=== PATIENT | male | born 1960 | race Caucasian/White ===

== ENCOUNTER → 2020-08-18 14:22 | Outpatient (BNVA) | payer OTHER, SELFPAY | PROVIDERS: PCP Internal Medicine; Visit Provider Surgery | DX: K42.9 Umbilical hernia without obstruction or gangrene (principal) | CPT/HCPCS: 99212 ==

== ENCOUNTER → 2020-09-23 10:49 | Day surgery (SDC) | payer OTHER, SELFPAY ==
[2020-09-03 10:48] VITALS: BMI 31.3
--- NOTE | 2020-09-08 11:05 | P.CONAN_ITS ---
Documented by User: Cherylher Avendanoney 09/21/20 10:31 HPI - Anesthesia Eval Consult details Narrative: 60yo M for Open Umbilical Hernia Repair with Mesh 02/2020 - CP and +stress echo, sent to cardiology. Beta saúl and Repeat Nuc Stress 08/2020 was negative for ischemia Childhood pcn allergy - confirm rxn [facility] Active Problems Active Problems: All Active Problems (Updated 09/03/20 @ 10:35 by Rosa Isela Woodard) Preoperative examination (Acute) Shortness of breath (Acute) Umbilical hernia (Acute) Past Medical History Medical History (Updated 09/23/20 @ 13:24 by Dianna Mckeon) GERD (gastroesophageal reflux disease) History of kidney stones HTN (hypertension) Knee pain, left Phlegm in throat Umbilical hernia Family History Family History Mother Heart murmur Father No problems noted. Brother No problems noted. Brother No problems noted. Brother No problems noted. Brother No problems noted. Brother No problems noted. Brother No problems noted. Brother No problems noted. Brother No problems noted. Surgical History Surgical History H/O bilateral inguinal hernia repair History of appendectomy History of lithotripsy Hx of adenoidectomy Social History Social History Alcohol intake: current Alcohol intake frequency: 0-2 drinks per day Alcohol type: wine Smoking Status: Former smoker Tobacco Type: Cigarette Smoking Quit Date: 2004 Use of substances other than those prescribed or required for medical reasons: No Are you DNR?: No Advance Directives: No (unknown) Advance Directives Information Provided: No Advance Directives on File: No (unknown) Meds Allergies Allergy/AdvReac Type Severity Reaction Status Date / Time Penicillins Allergy Unknown reaction Verified 09/03/20 10:51 unknown-childhood allergy-? anaphylaxis Home Medications Medication Instructions Recorded Confirmed Last Taken Type amlodipine 10 mg tablet 10 mg PO DAILY 08/18/20 09/03/20 Unknown History ascorbate calcium (vitamin C) 500 500 mg PO DAILY 08/18/20 09/03/20 Unknown History mg tablet aspirin 81 mg tablet,delayed 81 mg PO DAILY 08/18/20 09/03/20 Unknown History release carvedilol phosphate 20 mg 20 mg PO DAILY 08/18/20 09/03/20 Unknown History capsule,[id number] multiphase ibuprofen 800 mg tablet 800 mg PO TID 08/18/20 09/03/20 Unknown History ketoconazole 2 % topical cream 1 appl TOPICAL BID 08/18/20 09/03/20 Unknown History lisinopril 20 2 tab PO DAILY 08/18/20 09/03/20 Unknown History mg-hydrochlorothiazide 12.5 mg tablet multivitamin 1 tab PO DAILY 08/18/20 09/03/20 Unknown History omeprazole 20 mg capsule,delayed 20 mg PO DAILY 08/18/20 09/03/20 Unknown History release triamcinolone acetonide 0.1 % 1 appl TOPICAL BID 08/18/20 09/03/20 Unknown History topical cream Exam Exam Date and Time: September 08, 2020 1105 Height,Weight and Vital Signs: Height 5 ft 5 in Weight 85.457 kg Narrative Narrative: EKG 02/2020 NSR @ 91 08/2020 Nuc Stress Normal exercise nuc perfusion stress test No perfusion defect to suggest ischemia or infarct at target heart rate Nml LV size and systolic function with LVEF 73% Assessment and Plan Assessment Anesthesia Assessment: Chart Reviewed Documented by User: Dianna Mckeon 09/23/20 13:46 [facility] Past Medical History Medical History (Updated 09/23/20 @ 13:24 by Dianna Mckeon) GERD (gastroesophageal reflux disease) History of kidney stones HTN (hypertension) Knee pain, left Phlegm in throat Umbilical hernia Family History Family History Mother Heart murmur Father No problems noted. Brother No problems noted. Brother No problems noted. Brother No problems noted. Brother No problems noted. Brother No problems noted. Brother No problems noted. Brother No problems noted. Brother No problems noted. Family history of problems with anesthesia: No Surgical History Surgical History H/O bilateral inguinal hernia repair History of appendectomy History of lithotripsy Hx of adenoidectomy History of Problems with Anesthesia: No Social History Social History Alcohol intake: current Alcohol intake frequency: 0-2 drinks per day Alcohol type: wine Smoking Status: Former smoker Tobacco Type: Cigarette Smoking Quit Date: 2004 Use of substances other than those prescribed or required for medical reasons: No Are you DNR?: No Advance Directives: No (unknown) Advance Directives Information Provided: No Advance Directives on File: No (unknown) Meds Allergies Allergy/AdvReac Type Severity Reaction Status Date / Time Penicillins Allergy Unknown reaction Verified 09/03/20 10:51 unknown-childhood allergy-? anaphylaxis Home Medications Medication Instructions Recorded Confirmed Last Taken Type amlodipine 10 mg tablet 10 mg PO DAILY 08/18/20 09/03/20 Unknown History ascorbate calcium (vitamin C) 500 500 mg PO DAILY 08/18/20 09/03/20 Unknown History mg tablet aspirin 81 mg tablet,delayed 81 mg PO DAILY 08/18/20 09/03/20 Unknown History release carvedilol phosphate 20 mg 20 mg PO DAILY 08/18/20 09/03/20 Unknown History capsule,[id number] multiphase ibuprofen 800 mg tablet 800 mg PO TID 08/18/20 09/03/20 Unknown History ketoconazole 2 % topical cream 1 appl TOPICAL BID 08/18/20 09/03/20 Unknown History lisinopril 20 2 tab PO DAILY 08/18/20 09/03/20 Unknown History mg-hydrochlorothiazide 12.5 mg tablet multivitamin 1 tab PO DAILY 08/18/20 09/03/20 Unknown History omeprazole 20 mg capsule,delayed 20 mg PO DAILY 08/18/20 09/03/20 Unknown History release triamcinolone acetonide 0.1 % 1 appl TOPICAL BID 08/18/20 09/03/20 Unknown History topical cream Exam Height,Weight and Vital Signs: Vital Signs Temp Pulse Resp BP Pulse Ox 09/23/20 11:11 97.5 F 75 16 150/73 H 96 Pertinent Lab Results Pertinent Lab Results: Lab Results 09/23/20 Range/Units 10:59 COVID-19 ([facility]) Negative (Negative) COVID-19 Clin Com See Note Narrative Narrative: Seems a little SOB after walking from bathroom but no different from usual. Sats 95% RA ? Penicillin allergy. Cefazolin OK per Dr Krause Airway Mallampati Class: II TM Dist: >3cm Neck ROM: Full Heart: RRR Lungs: CTAB Assessment and Plan Assessment Anesthesia Assessment: Anesthesia Plan Discussed and Chart Reviewed Final Anesthetic Review NPO: Yes ASA Class: III Final Preanesthetic Review: No Changes in Pt Med Stat, Meds/Allgs Chart Reviewed, Consent Obtained/Reviewed and Anes Risks/Benef Reviewed Patient Risk: Intermediate Procedure Risk: Low Assessment/Block/Sedation in SS: Assess/Block/Sedation-SS Anesthetic Plan Anesthetic Plan: GA Disposition: Standard PACU
[2020-09-18 15:42] VITALS: BMI 30.2
--- NOTE | 2020-09-22 16:52 | MHC.SHP ---
Pre-Procedural Eval Section B Chief Complaint: umbilical hernia Allergies: Allergies Allergy/AdvReac Type Severity Reaction Status Date / Time Penicillins Allergy Unknown reaction Verified 09/03/20 10:51 unknown-childhood allergy-? anaphylaxis Plan I have reviewed the history and physical and performed a pertinent physical examination on my patient. No changes have occurred unless specified.
[2020-09-23] VITALS (7 sets, daily range): BP systolic 122–150; BP diastolic 62–75; PULSE 68–75; RESP 16; TEMP 36.4–36.5; O2SAT 95–99
[2020-09-23 11:32] LABS: COVID-19 Test Negative (Negative); IDNOW Serial# 9DD0AD1C
--- NOTE | 2020-09-23 14:45 | P.BOP_ITS ---
Brief Operative Note Date of Service: 09/23/20 Pre-op diagnosis: Umbilical hernia Post-op diagnosis: same Procedure: Open repair umbilical hernia with mesh Implants: 4.[address] strap mesh Surgeon: Renate Krause MD Anesthesia: GLMA Was an Rehabilitation Services Aide used for this Procedure?: No Estimated blood loss (mL): 3 Pathology: none sent Condition: stable Disposition: PACU
--- NOTE | 2020-09-23 14:50 | W.PM.OPN ---
Operative Note Operative Note Date of Service: 09/23/20 Narrative: Patient was brought into the operating room, placed on operating room table in the supine position. Normal DVT prophylaxis was instituted and the patient received the appropriate preoperative antibiotic which was 2 g of IV Kefzol. General anesthesia was induced. The abdomen was prepped and draped in normal sterile fashion using ChloraPrep. A safety time-out was performed. A mixture of local anesthetic which included 1% lidocaine with epinephrine and 0.25% Marcaine plain was used to anesthetize the planned incision site in the periumbilical region. Next a 11. Scalpel was used to make a 2.5 cm infraumbilical semicircular transverse surgical incision through which the subcutaneous tissues were dissected down to level of fascia using cautery. The umbilical stalk was dissected off the underlying fascia. The hernia was reduced. The contents of the hernia were preperitoneal fat. The size of the hernia defect was 1 to 1.5 cm in size. Next a suitable size mesh was chosen for the hernia repair. The hernia mesh was 4 cm in size and was a Ventralight ST strap hernia mesh. The hernia mesh was then placed into the preperitoneal position and sutured in place using a total of 4 sutures of 0 Prolene. The mesh was placed in an underlay fashion with U-stitch sutures with the knots of the suture being placed on top of the fascia. The sutures were placed at the 3, 6, 9, 12 o'clock positioning. Once the mesh was in good position and well apposed to the undersurface of the fascia the sutures were tied down to the fascia. We cut the strap off the hernia mesh. There was no residual hernia defect. We then reapproximated the fascia overlying the mesh using a running 0 Prolene suture so that the mesh was completely covered. We tacked down the umbilicus to the fascia using a 3-0 Vicryl suture. We then instilled local anesthetic into the fascia closure site. We then reapproximated deep dermal tissues at the incision site and closed overlying skin with a 4-0 Monocryl subcuticular stitch. We cleaned and dried the skin and applied Dermabond skin glue to the incision. We placed a 2 x 2 dressing inside the umbilicus and a Tegaderm to prevent seroma formation postoperatively. All counts were correct at the end the case there were no complications. The patient was awake and in stable condition prior to transfer to extubation and transferred to the recovery room.
[2020-09-23] MEDS: oxyCODONE HCl Immed Release 5 MG TABLET PO (15:18)
== END | disposition home or self-care (01) ==
PROVIDERS: PCP Internal Medicine; Visit Provider Surgery
PROC: (CPT 49585; principal; 2020-09-23 13:00)
DX: K42.9 Umbilical hernia without obstruction or gangrene (principal); K21.9 Gastro-esophageal reflux disease without esophagitis; I10 Essential (primary) hypertension; Z79.82 Long term (current) use of aspirin; Z79.899 Other long term (current) drug therapy; Z88.0 Allergy status to penicillin; Z87.891 Personal history of nicotine dependence
CPT/HCPCS: 49585; 36415; 87635; C1781; J0690; J1100; J1885; J2250; J2405; J2765; J3010

== ENCOUNTER → 2020-10-09 14:06 | Outpatient (BNVA) | payer OTHER, SELFPAY | PROVIDERS: PCP Internal Medicine; Visit Provider Surgery | DX: Z98.890 Other specified postprocedural states (principal); Z87.19 Personal history of other diseases of the digestive system | CPT/HCPCS: 99212 ==

== ENCOUNTER → 2020-10-26 13:54 | Outpatient (BNVA) | payer OTHER, SELFPAY | PROVIDERS: PCP Internal Medicine; Referring Provider Internal Medicine; Visit Provider Surgery | DX: Z98.890 Other specified postprocedural states (principal); Z87.19 Personal history of other diseases of the digestive system | CPT/HCPCS: 99212 ==